=== PATIENT | male | born 1955 | race Caucasian/White ===

== ENCOUNTER → 2017-09-17 21:43 | Emergency (ER) | payer MEDICARE, MEDICAID ==
[2017-09-17] MEDS: SOD CHLORIDE 0.9% 1,000 ML IV (17:19)
[2017-09-17] MEDS: ONDANSETRON 4 MG INJ IV (17:19)
[2017-09-17 17:31] LABS: ADD MAN DIFF? NO
[2017-09-17 17:35] LABS: BASOPHIL # 0.1 10^3/ul (0.0-0.1); BASOPHILS % 1.1 % (0.0-2.0); EOSINOPHILS # 0.1 10^3/ul (0.0-0.5); EOSINOPHILS % 0.7 % (0.0-7.0); HEMATOCRIT 45.6 % (42.0-52.0); HEMOGLOBIN 15.1 g/dl (14.0-18.0); LYMPHOCYTES # 2.8 10^3/ul (0.8-2.9); LYMPHOCYTES % 31.9 % (15.0-51.0); MEAN CORPUSCULAR HEMOGLOBIN 27.3 pg (29.0-33.0); MEAN CORPUSCULAR HGB CONC 33.1 g/dl (32.0-37.0); MEAN CORPUSCULAR VOLUME 82.5 fl (82.0-101.0); MEAN PLATELET VOLUME 9.8 fl (7.4-10.4); MONOCYTE # 0.6 10^3/ul (0.3-0.9); MONOCYTES % 7.3 % (0.0-11.0); NEUTROPHILS % 56.6 % (39.0-77.0); PLATELET COUNT 263 10^3/UL (140-415); RED BLOOD COUNT 5.53 10^6/ul (4.70-6.10); RED CELL DISTRIBUTION WIDTH 15.1 % (11.5-14.5)
[2017-09-17 17:35] LABS: WHITE BLOOD COUNT 8.8 10^3/ul (4.8-10.8)
[2017-09-17 17:55] LABS: ALANINE AMINOTRANSFERASE 18 IU/L (13-69); ALBUMIN/GLOBULIN RATIO 1.29; ALKALINE PHOSPHATASE 184 IU/L (42-121); ANION GAP 16 (8-16); ASPARTATE AMINO TRANSFERASE 24 IU/L (15-46); BILIRUBIN,INDIRECT 0.5 mg/dl (0-1.1); BILIRUBIN,TOTAL 0.5 mg/dl (0.2-1.3); BLOOD UREA NITROGEN 19 mg/dl (7-20); CALCIUM 9.2 mg/dl (8.4-10.2); CARBON DIOXIDE 22 mmol/L (21-31); CHLORIDE 97 mmol/L (97-110); CREATININE 0.91 mg/dl (0.61-1.24); LIPASE 160 U/L (23-300); POTASSIUM 4.9 mmol/L (3.5-5.1); SODIUM 130 mmol/L (135-144); TOTAL PROTEIN 7.1 g/dl (6.1-8.1)
[2017-09-17 18:08] LABS: GLUCOSE 489 mg/dl (70-220)
[2017-09-17 18:19] LABS: ADD UMIC YES; UR ASCORBIC ACID NEGATIVE (NEGATIVE); UR BILIRUBIN (Dip) NEGATIVE (NEGATIVE); UR BLOOD (Dip) NEGATIVE (NEGATIVE); UR CLARITY CLEAR (CLEAR); UR COLOR STRAW (YELLOW); UR GLUCOSE (Dip) 3+ mg/dL (NEGATIVE); UR KETONES (Dip) NEGATIVE (NEGATIVE); UR LEUKOCYTE ESTERASE (Dip) NEGATIVE Leu/ul (NEGATIVE); UR NITRITE (Dip) NEGATIVE (NEGATIVE); UR RBC 0 /HPF (0-5); UR TOTAL PROTEIN (Dip) 1+ mg/dl (NEGATIVE); UR UROBILINOGEN (Dip) NEGATIVE (NEGATIVE); UR WBC 0 /HPF (0-5)
[2017-09-17] MEDS: INSULIN LISPRO 100 UNIT/ML VIAL SC (19:28)
[2017-09-17] MEDS: LACTATED RINGER'S 1,000 ML IV (19:33)
[2017-09-17] MEDS: KETOROLAC 30 MG INJ IV (20:30)
[~2017-09-17 21:43] MED LIST: SOD CHLORIDE 0.9% 1,000 ML IV
== END | disposition home or self-care (01) ==
DX: S69.92XA Unspecified injury of left wrist, hand and finger(s), initial encounter (principal); R11.10 Vomiting, unspecified; R19.7 Diarrhea, unspecified; E11.65 Type 2 diabetes mellitus with hyperglycemia; I10 Essential (primary) hypertension; X58.XXXA Exposure to other specified factors, initial encounter; Y92.9 Unspecified place or not applicable; Z79.84 Long term (current) use of oral hypoglycemic drugs
CPT/HCPCS: 29125; 73030; 73060; 73080-LT; 73110-LT; 73130-LT; 80053; 81001; 82962; 83690; 85025; 96372; 96374; 96375; 99284-25

== ENCOUNTER 2017-09-22 19:51 | Inpatient (IN) | payer MEDICARE, MEDICAID ==
[2017-09-23 00:54] LABS: ADD MAN DIFF? NO
[2017-09-23 00:55] LABS: WHITE BLOOD COUNT 7.7 10^3/ul (4.8-10.8)
[2017-09-23 00:55] LABS: BASOPHILS % 0.5 % (0.0-2.0); HEMATOCRIT 49.3 % (42.0-52.0); HEMOGLOBIN 16.2 g/dl (14.0-18.0); LYMPHOCYTES # 0.9 10^3/ul (0.8-2.9); LYMPHOCYTES % 11.1 % (15.0-51.0); MEAN CORPUSCULAR HEMOGLOBIN 27.1 pg (29.0-33.0); MEAN CORPUSCULAR HGB CONC 32.9 g/dl (32.0-37.0); MEAN CORPUSCULAR VOLUME 82.4 fl (82.0-101.0); MEAN PLATELET VOLUME 9.2 fl (7.4-10.4); MONOCYTE # 0.5 10^3/ul (0.3-0.9); MONOCYTES % 6.1 % (0.0-11.0); NEUTROPHIL # 6.3 10^3/ul (1.6-7.5); NEUTROPHILS % 81.5 % (39.0-77.0); PLATELET COUNT 217 10^3/UL (140-415); RED BLOOD COUNT 5.98 10^6/ul (4.70-6.10); RED CELL DISTRIBUTION WIDTH 15.3 % (11.5-14.5)
[2017-09-23] MEDS ORDERED: HYDROmorphONE 2 MG/ML SYG IV (01:14)
[2017-09-23 01:15] LABS: ALANINE AMINOTRANSFERASE 18 IU/L (13-69); ALBUMIN 4.3 g/dl (3.3-4.9); ALBUMIN/GLOBULIN RATIO 1.59; ALKALINE PHOSPHATASE 126 IU/L (42-121); ANION GAP 25 (8-16); ASPARTATE AMINO TRANSFERASE 44 IU/L (15-46); BILIRUBIN,INDIRECT 0.7 mg/dl (0-1.1); BILIRUBIN,TOTAL 0.7 mg/dl (0.2-1.3); BLOOD UREA NITROGEN 22 mg/dl (7-20); CALCIUM 9.5 mg/dl (8.4-10.2); CARBON DIOXIDE 15 mmol/L (21-31); CHLORIDE 93 mmol/L (97-110); CREATININE 1.09 mg/dl (0.61-1.24); POTASSIUM 4.9 mmol/L (3.5-5.1); SODIUM 128 mmol/L (135-144)
[2017-09-23] MEDS: HYDROmorphONE 1 MG/ML SYG IV ×4 (01:23→16:53)
[2017-09-23 01:27] LABS: B-TYPE NATRIURETIC PEPTIDE 366 PG/ML (0-125); TROPONIN-I < 0.010 ng/ml (0.000-0.120)
[2017-09-23 01:31] LABS: GLUCOSE 827 mg/dl (70-220)
[2017-09-23] MEDS ORDERED: SODIUM CHLORIDE 23.4% 77 MEQ, POTASSIUM CHLORIDE 40 MEQ in DEXTROSE 10% 1,000 ML IV (02:04)
[2017-09-23] MEDS ORDERED: POTASSIUM CHLORIDE 40 MEQ in SOD CHLORIDE 0.9% 1,000 ML IV (02:04)
[2017-09-23] MEDS ORDERED: SODIUM CHLORIDE 23.4% 77 MEQ in DEXTROSE 10% 1,000 ML IV (02:04)
[2017-09-23] MEDS: SOD CHLORIDE 0.9% 1,000 ML IV (02:21)
[2017-09-23] MEDS ORDERED: DEXTROSE 50% 50 ML SYRINGE IV ×4 (02:30→13:30)
[2017-09-23] MEDS: LACTATED RINGER'S 880 ML IV (03:16)
[2017-09-23 04:01] LABS: MODE ROOM AIR; MetHgb Venous 0.4 %; Sample Type Blood venous; Site VENOUS LINE; Venous COHb 0.6 %; Venous Fraction OxyHgb 86.8 %; Venous Oxygen Sat 87.7 mmHG (55.0-75.0); Venous Total Hemglobin 15.9 g/dl
[2017-09-23] MEDS: INSULIN REGULAR, HUMAN 100 UNIT in SOD CHLORIDE 0.9% 100 ML IV (04:04)
[2017-09-23] MEDS: POTASSIUM CHLORIDE 30 MEQ in SOD CHLORIDE 0.9% 1,000 ML IV (04:05)
[2017-09-23 05:08] LABS: ANION GAP 19 (8-16); BLOOD UREA NITROGEN 19 mg/dl (7-20); CALCIUM 8.7 mg/dl (8.4-10.2); CARBON DIOXIDE 18 mmol/L (21-31); CHLORIDE 100 mmol/L (97-110); MAGNESIUM 1.9 mg/dl (1.7-2.5); PHOSPHORUS 2.9 mg/dl (2.5-4.9); POTASSIUM 5.1 mmol/L (3.5-5.1); SODIUM 132 mmol/L (135-144)
[2017-09-23] MEDS: SODIUM CHLORIDE 23.4% 77 MEQ, POTASSIUM CHLORIDE 30 MEQ in DEXTROSE 10% 1,000 ML IV ×3 (05:11→17:07)
[2017-09-23 05:20] LABS: GLUCOSE 551 mg/dl (70-220)
[2017-09-23 06:06] LABS: MODE ROOM AIR; MetHgb Venous 0.3 %; Sample Type Blood venous; Site VENOUS LINE; Venous COHb 0.9 %; Venous Fraction OxyHgb 87.6 %; Venous Oxygen Sat 88.7 mmHG (55.0-75.0); Venous Total Hemglobin 15.7 g/dl
[2017-09-23 06:32] LABS: ADD UMIC YES; UR ASCORBIC ACID NEGATIVE (NEGATIVE); UR BILIRUBIN (Dip) NEGATIVE (NEGATIVE); UR BLOOD (Dip) 1+ mg/dL (NEGATIVE); UR CLARITY CLEAR (CLEAR); UR COLOR COLORLESS (YELLOW); UR GLUCOSE (Dip) 3+ mg/dL (NEGATIVE); UR KETONES (Dip) NEGATIVE (NEGATIVE); UR LEUKOCYTE ESTERASE (Dip) NEGATIVE Leu/ul (NEGATIVE); UR NITRITE (Dip) NEGATIVE (NEGATIVE); UR RBC 0 /HPF (0-5); UR SPECIFIC GRAVITY (Dip) 1.023 (1.003-1.030); UR TOTAL PROTEIN (Dip) NEGATIVE (NEGATIVE); UR UROBILINOGEN (Dip) NEGATIVE (NEGATIVE); UR WBC 0 /HPF (0-5)
[2017-09-23 06:33] LABS: ANION GAP 17 (8-16); BLOOD UREA NITROGEN 18 mg/dl (7-20); CALCIUM 8.9 mg/dl (8.4-10.2); CARBON DIOXIDE 21 mmol/L (21-31); CHLORIDE 106 mmol/L (97-110); CREATININE 0.88 mg/dl (0.61-1.24); GLUCOSE 200 mg/dl (70-220); PHOSPHORUS 1.7 mg/dl (2.5-4.9); SODIUM 140 mmol/L (135-144)
[2017-09-23 07:02] LABS: CREATINE KINASE 99 IU/L (23-200)
[2017-09-23 07:13] LABS: CK INDEX 3.7; CK-MB 3.67 ng/ml (0.0-2.4); TROPONIN-I 0.021 ng/ml (0.000-0.120)
[2017-09-23 10:11] LABS: AADO2 Venous 40.4 mmHg; MODE ROOM AIR; MetHgb Venous 0.4 %; Sample Type Blood venous; Site VENOUS LINE; Venous COHb 0.5 %; Venous Fraction OxyHgb 91.8 %; Venous Oxygen Sat 92.6 mmHG (55.0-75.0); Venous Total Hemglobin 15.4 g/dl
[2017-09-23] MEDS: SULFACETAMIDE 10% 15 ML OPH BOTH EYES ×4 (11:01→22:15)
[2017-09-23 11:13] LABS: ANION GAP 6 (8-16); BLOOD UREA NITROGEN 17 mg/dl (7-20); CALCIUM 8.7 mg/dl (8.4-10.2); CARBON DIOXIDE 26 mmol/L (21-31); CHLORIDE 108 mmol/L (97-110); CREATININE 0.69 mg/dl (0.61-1.24); GLUCOSE 88 mg/dl (70-220); PHOSPHORUS 1.2 mg/dl (2.5-4.9); POTASSIUM 3.4 mmol/L (3.5-5.1); SODIUM 137 mmol/L (135-144)
[2017-09-23] MEDS: INSULIN GLARGINE [LANTus] (100 UNITS/ML) SYG SC (13:24)
[2017-09-23] MEDS ORDERED: GLUCOSE GEL 15 GRAM TUBE BUCCAL (13:30)
[2017-09-23] MEDS ORDERED: GLUCOSE GEL 15 GRAM TUBE PO ×2 (13:30)
[2017-09-23] MEDS ORDERED: GLUCAGON 1 MG INJ IM (13:30)
[2017-09-23 13:36] LABS: ADD UMIC YES; UR ASCORBIC ACID NEGATIVE (NEGATIVE); UR BILIRUBIN (Dip) NEGATIVE (NEGATIVE); UR BLOOD (Dip) 1+ mg/dL (NEGATIVE); UR CLARITY CLEAR (CLEAR); UR COLOR COLORLESS (YELLOW); UR GLUCOSE (Dip) 3+ mg/dL (NEGATIVE); UR KETONES (Dip) NEGATIVE (NEGATIVE); UR LEUKOCYTE ESTERASE (Dip) NEGATIVE Leu/ul (NEGATIVE); UR NITRITE (Dip) NEGATIVE (NEGATIVE); UR RBC 0 /HPF (0-5); UR SPECIFIC GRAVITY (Dip) 1.023 (1.003-1.030); UR TOTAL PROTEIN (Dip) NEGATIVE (NEGATIVE); UR UROBILINOGEN (Dip) NEGATIVE (NEGATIVE); UR WBC 0 /HPF (0-5)
[2017-09-23 14:01] LABS: AMPHETAMINE/METHAMPHETAMINE Negative (NEGATIVE); BARBITURATES Negative (NEGATIVE); BENZODIAZEPINES Negative (NEGATIVE); CANNABINOIDS Negative (NEGATIVE); COCAINE Negative (NEGATIVE); OPIATES Negative (NEGATIVE)
[2017-09-23 14:05] LABS: MODE ROOM AIR; MetHgb Venous 0.3 %; Sample Type Blood venous; Site VENOUS LINE; Venous COHb 0.7 %; Venous Fraction OxyHgb 72.4 %; Venous Oxygen Sat 73.1 mmHG (55.0-75.0); Venous Total Hemglobin 15.7 g/dl
[2017-09-23 14:20] LABS: CREATINE KINASE 109 IU/L (23-200)
[2017-09-23 14:33] LABS: CK INDEX 3.3; CK-MB 3.61 ng/ml (0.0-2.4); TROPONIN-I < 0.010 ng/ml (0.000-0.120)
[2017-09-23 18:42] LABS: ANION GAP 8 (8-16); BLOOD UREA NITROGEN 16 mg/dl (7-20); CALCIUM 8.3 mg/dl (8.4-10.2); CARBON DIOXIDE 23 mmol/L (21-31); CHLORIDE 106 mmol/L (97-110); GLUCOSE 192 mg/dl (70-220); MAGNESIUM 1.8 mg/dl (1.7-2.5); PHOSPHORUS 1.5 mg/dl (2.5-4.9); SODIUM 133 mmol/L (135-144)
[2017-09-23] MEDS: INSULIN ASPART [NOVOLOG] 3 ML PEN SC ×2 (20:22→22:16)
[2017-09-23] MEDS ORDERED: ACETAMINOPHEN 325 MG TAB PO (20:30)
[2017-09-23] MEDS ORDERED: ONDANSETRON 4 MG INJ IV (20:30)
[2017-09-23] MEDS: HYDROmorphONE 0.5 MG/0.5 ML SYG IV (20:33)
[2017-09-23] MEDS ORDERED: GLIMEPIRIDE 2 MG TAB PO (21:00)
[2017-09-23] MEDS: NEOMYC/POLYMYX/BACIT 30 GM OINT TOP (22:15)
[2017-09-23] MEDS: ATORVASTATIN 10 MG TAB PO (22:16)
[2017-09-24] MEDS: LORAZEPAM 2 MG INJ IV (00:17)
[2017-09-24] MEDS: ACCU-CHEK XX (02:00)
[2017-09-24] MEDS: HYDROmorphONE 0.5 MG/0.5 ML SYG IV (02:04)
[2017-09-24] MEDS: HYDROmorphONE 1 MG/ML SYG IV ×4 (04:55→18:29)
[2017-09-24 05:43] LABS: ADD MAN DIFF? NO; BASOPHILS % 0.8 % (0.0-2.0); EOSINOPHILS # 0.1 10^3/ul (0.0-0.5); EOSINOPHILS % 1.6 % (0.0-7.0); HEMOGLOBIN 13.6 g/dl (14.0-18.0); LYMPHOCYTES # 2.1 10^3/ul (0.8-2.9); LYMPHOCYTES % 42.2 % (15.0-51.0); MEAN CORPUSCULAR HEMOGLOBIN 27.7 pg (29.0-33.0); MEAN CORPUSCULAR HGB CONC 33.2 g/dl (32.0-37.0); MEAN CORPUSCULAR VOLUME 83.5 fl (82.0-101.0); MEAN PLATELET VOLUME 8.9 fl (7.4-10.4); MONOCYTE # 0.3 10^3/ul (0.3-0.9); MONOCYTES % 6.6 % (0.0-11.0); NEUTROPHIL # 2.4 10^3/ul (1.6-7.5); NEUTROPHILS % 47.6 % (39.0-77.0); PLATELET COUNT 136 10^3/UL (140-415); RED BLOOD COUNT 4.91 10^6/ul (4.70-6.10); RED CELL DISTRIBUTION WIDTH 15.6 % (11.5-14.5)
[2017-09-24] MEDS: LEVOTHYROXINE 25 MCG TAB PO (06:00)
[2017-09-24 06:11] LABS: ALANINE AMINOTRANSFERASE 27 IU/L (13-69); ALKALINE PHOSPHATASE 100 IU/L (42-121); ANION GAP 8 (8-16); ASPARTATE AMINO TRANSFERASE 54 IU/L (15-46); BILIRUBIN,INDIRECT 0.4 mg/dl (0-1.1); BILIRUBIN,TOTAL 0.4 mg/dl (0.2-1.3); BLOOD UREA NITROGEN 15 mg/dl (7-20); CALCIUM 8.7 mg/dl (8.4-10.2); CARBON DIOXIDE 26 mmol/L (21-31); CHLORIDE 106 mmol/L (97-110); CHOL/HDL RATIO 2.1 RATIO; CHOLESTEROL 115 mg/dl (100-200); CREATININE 0.89 mg/dl (0.61-1.24); GLUCOSE 315 mg/dl (70-220); HDL CHOLESTEROL 54 mg/dl (30-78); LDL CHOLESTEROL,CALCULATED 7 mg/dl; MAGNESIUM 1.8 mg/dl (1.7-2.5); PHOSPHORUS 1.6 mg/dl (2.5-4.9); POTASSIUM 3.7 mmol/L (3.5-5.1); SODIUM 136 mmol/L (135-144); TOTAL PROTEIN 5.5 g/dl (6.1-8.1); TRIGLYCERIDES 271 mg/dl (0-149)
[2017-09-24 06:13] LABS: INR 0.92; PROTIME 12.4 Sec (11.9-14.9)
[2017-09-24 06:14] LABS: PARTIAL THROMBOPLASTIN TIME 25.5 Sec (25.0-35.0)
[2017-09-24 06:20] LABS: TROPONIN-I 0.013 ng/ml (0.000-0.120)
[2017-09-24 06:24] LABS: FREE THYROXINE INDEX (Calc) 2.89 ug/ml (0.65-3.89); T3 UPTAKE 45.9 % (23.5-40.5); T4 (THYROXINE) 6.3 ug/dl (5.5-11.0)
[2017-09-24 07:14] LABS: HEMOGLOBIN A1C 11.9 % (0-5.9)
[2017-09-24] MEDS: INSULIN ASPART [NOVOLOG] 3 ML PEN SC ×7 (08:16→20:50)
[2017-09-24] MEDS: SULFACETAMIDE 10% 15 ML OPH BOTH EYES ×4 (09:35→20:47)
[2017-09-24] MEDS: LITHIUM CARBONATE (SR) 300 MG TAB PO (09:35)
[2017-09-24] MEDS: NEOMYC/POLYMYX/BACIT 30 GM OINT TOP ×2 (09:36→13:09)
[2017-09-24] MEDS: LISINOPRIL 10 MG TAB PO (09:36)
[2017-09-24] MEDS: clonAZEPAM 0.5 MG TAB PO ×2 (13:09→21:14)
[2017-09-24] MEDS: ATORVASTATIN 10 MG TAB PO (20:47)
[2017-09-24] MEDS: metFORMIN 500 MG TAB PO (21:13)
[2017-09-24] MEDS: HYDROmorphONE 2 MG/ML SYG IV (21:16)
[2017-09-24] MEDS: INSULIN GLARGINE [LANTus] (100 UNITS/ML) SYG SC (22:06)
[2017-09-24 23:55] LABS: LITHIUM < 0.4 mmol/L (0.6-1.3)
[2017-09-25] MEDS: NEOMYC/POLYMYX/BACIT 30 GM OINT TOP ×4 (00:41→20:29)
[2017-09-25] MEDS: LITHIUM CARBONATE (SR) 300 MG TAB PO ×3 (00:45→20:29)
[2017-09-25] MEDS: HYDROmorphONE 2 MG/ML SYG IV ×6 (00:50→21:54)
[2017-09-25] MEDS: ACCU-CHEK XX (02:26)
[2017-09-25] MEDS ORDERED: CEFAZOLIN 1 GM/50 ML (PMX) 50 ML IVPB (04:53)
[2017-09-25] MEDS: CEFAZOLIN 1 GM/50 ML (PMX) 50 ML IVPB ×3 (05:51→17:02)
[2017-09-25 06:39] LABS: ADD MAN DIFF? NO
[2017-09-25 06:42] LABS: BASOPHILS % 0.7 % (0.0-2.0); EOSINOPHILS # 0.3 10^3/ul (0.0-0.5); EOSINOPHILS % 4.1 % (0.0-7.0); HEMATOCRIT 38.7 % (42.0-52.0); HEMOGLOBIN 12.6 g/dl (14.0-18.0); LYMPHOCYTES # 3.1 10^3/ul (0.8-2.9); LYMPHOCYTES % 51.4 % (15.0-51.0); MEAN CORPUSCULAR HEMOGLOBIN 27.5 pg (29.0-33.0); MEAN CORPUSCULAR HGB CONC 32.6 g/dl (32.0-37.0); MEAN CORPUSCULAR VOLUME 84.5 fl (82.0-101.0); MONOCYTE # 0.4 10^3/ul (0.3-0.9); MONOCYTES % 6.8 % (0.0-11.0); NEUTROPHIL # 2.1 10^3/ul (1.6-7.5); NEUTROPHILS % 34.4 % (39.0-77.0); PLATELET COUNT 149 10^3/UL (140-415); RED BLOOD COUNT 4.58 10^6/ul (4.70-6.10); RED CELL DISTRIBUTION WIDTH 15.9 % (11.5-14.5)
[2017-09-25 06:42] LABS: WHITE BLOOD COUNT 6.1 10^3/ul (4.8-10.8)
[2017-09-25 07:10] LABS: ALANINE AMINOTRANSFERASE 33 IU/L (13-69); ALBUMIN 2.9 g/dl (3.3-4.9); ALBUMIN/GLOBULIN RATIO 1.11; ALKALINE PHOSPHATASE 85 IU/L (42-121); ANION GAP 9 (8-16); ASPARTATE AMINO TRANSFERASE 46 IU/L (15-46); BILIRUBIN,INDIRECT 0.3 mg/dl (0-1.1); BILIRUBIN,TOTAL 0.3 mg/dl (0.2-1.3); BLOOD UREA NITROGEN 18 mg/dl (7-20); CALCIUM 9.1 mg/dl (8.4-10.2); CARBON DIOXIDE 29 mmol/L (21-31); CHLORIDE 102 mmol/L (97-110); CREATININE 0.78 mg/dl (0.61-1.24); GLUCOSE 217 mg/dl (70-220); POTASSIUM 3.7 mmol/L (3.5-5.1); SODIUM 136 mmol/L (135-144); TOTAL PROTEIN 5.5 g/dl (6.1-8.1)
[2017-09-25] MEDS: LORAZEPAM 2 MG INJ IV ×2 (08:16→19:30)
[2017-09-25] MEDS: INSULIN ASPART [NOVOLOG] 3 ML PEN SC ×7 (08:47→21:00)
[2017-09-25] MEDS: LISINOPRIL 10 MG TAB PO (08:48)
[2017-09-25] MEDS: metFORMIN 500 MG TAB PO ×2 (08:48→17:02)
[2017-09-25] MEDS: LINAGLIPTIN 5 MG TABLET PO (08:48)
[2017-09-25] MEDS: SULFACETAMIDE 10% 15 ML OPH BOTH EYES ×4 (08:49→20:29)
[2017-09-25] MEDS: clonAZEPAM 0.5 MG TAB PO (10:16)
[2017-09-25] MEDS: LEVOTHYROXINE 25 MCG TAB PO (10:17)
[2017-09-25 14:58] LABS: HEMOGLOBIN A1C 12.1 % (0-5.9)
[2017-09-25] MEDS: ATORVASTATIN 10 MG TAB PO (20:29)
[2017-09-25] MEDS: INSULIN GLARGINE [LANTus] (100 UNITS/ML) SYG SC (21:22)
[2017-09-26] MEDS: clonAZEPAM 0.5 MG TAB PO (00:11)
[2017-09-26] MEDS: HYDROmorphONE 2 MG/ML SYG IV ×5 (01:54→18:07)
[2017-09-26] MEDS: ACCU-CHEK XX ×2 (02:00→23:05)
[2017-09-26] MEDS: CEFAZOLIN 1 GM/50 ML (PMX) 50 ML IVPB ×4 (05:43→17:30)
[2017-09-26] MEDS: LORAZEPAM 2 MG INJ IV ×2 (08:00→20:22)
[2017-09-26] MEDS: metFORMIN 500 MG TAB PO ×2 (08:04→17:30)
[2017-09-26] MEDS: NEOMYC/POLYMYX/BACIT 30 GM OINT TOP ×3 (08:04→20:21)
[2017-09-26] MEDS: SULFACETAMIDE 10% 15 ML OPH BOTH EYES ×4 (08:05→20:21)
[2017-09-26] MEDS: LINAGLIPTIN 5 MG TABLET PO (08:05)
[2017-09-26] MEDS: LITHIUM CARBONATE (SR) 300 MG TAB PO ×2 (08:05→20:22)
[2017-09-26] MEDS: LISINOPRIL 10 MG TAB PO (08:06)
[2017-09-26] MEDS: INSULIN ASPART [NOVOLOG] 3 ML PEN SC ×7 (08:07→20:21)
[2017-09-26] MEDS: LEVOTHYROXINE 25 MCG TAB PO (10:04)
[2017-09-26] MEDS: ATORVASTATIN 10 MG TAB PO (20:21)
[2017-09-26] MEDS: INSULIN GLARGINE [LANTus] (100 UNITS/ML) SYG SC (20:46)
[2017-09-26] MEDS: HYDROmorphONE 1 MG/ML SYG IV (22:05)
[2017-09-27] MEDS: CEFAZOLIN 1 GM/50 ML (PMX) 50 ML IVPB ×5 (00:46→23:50)
[2017-09-27] MEDS: HYDROmorphONE 0.5 MG/0.5 ML SYG IV ×6 (02:11→23:50)
[2017-09-27] MEDS: INSULIN ASPART [NOVOLOG] 3 ML PEN SC ×7 (08:00→20:01)
[2017-09-27] MEDS: NEOMYC/POLYMYX/BACIT 30 GM OINT TOP ×3 (09:03→20:00)
[2017-09-27] MEDS: LINAGLIPTIN 5 MG TABLET PO (09:03)
[2017-09-27] MEDS: LITHIUM CARBONATE (SR) 300 MG TAB PO ×2 (09:03→20:40)
[2017-09-27] MEDS: SULFACETAMIDE 10% 15 ML OPH BOTH EYES ×4 (09:03→20:00)
[2017-09-27] MEDS: metFORMIN 500 MG TAB PO ×2 (09:03→17:50)
[2017-09-27] MEDS: LISINOPRIL 10 MG TAB PO (09:04)
[2017-09-27] MEDS: LORAZEPAM 2 MG INJ IV (09:04)
[2017-09-27] MEDS: LEVOTHYROXINE 25 MCG TAB PO (10:56)
[2017-09-27 16:41] LABS: ADD MAN DIFF? NO
[2017-09-27 16:43] LABS: BASOPHIL # 0.1 10^3/ul (0.0-0.1); BASOPHILS % 0.9 % (0.0-2.0); EOSINOPHILS # 0.3 10^3/ul (0.0-0.5); EOSINOPHILS % 3.5 % (0.0-7.0); HEMATOCRIT 42.3 % (42.0-52.0); HEMOGLOBIN 13.4 g/dl (14.0-18.0); IMMATURE GRANS #M 0.16 10^3/ul; LYMPHOCYTES # 2.1 10^3/ul (0.8-2.9); LYMPHOCYTES % 25.8 % (15.0-51.0); MEAN CORPUSCULAR HEMOGLOBIN 27.9 pg (29.0-33.0); MEAN CORPUSCULAR HGB CONC 31.7 g/dl (32.0-37.0); MEAN CORPUSCULAR VOLUME 87.9 fl (82.0-101.0); MEAN PLATELET VOLUME 11.6 fl (7.4-10.4); MONOCYTE # 0.9 10^3/ul (0.3-0.9); MONOCYTES % 11.3 % (0.0-11.0); NEUTROPHIL # 4.5 10^3/ul (1.6-7.5); NEUTROPHILS % 56.5 % (39.0-77.0); POSITIVE DIFF @See below; RED BLOOD COUNT 4.81 10^6/ul (4.70-6.10); RED CELL DISTRIBUTION WIDTH 15.9 % (11.5-14.5)
[2017-09-27 17:00] LABS: ANION GAP 12 (8-16); BLOOD UREA NITROGEN 17 mg/dl (7-20); CALCIUM 9.4 mg/dl (8.4-10.2); CARBON DIOXIDE 24 mmol/L (21-31); CHLORIDE 104 mmol/L (97-110); CREATININE 0.75 mg/dl (0.61-1.24); GLUCOSE 83 mg/dl (70-220); MAGNESIUM 1.8 mg/dl (1.7-2.5); SODIUM 135 mmol/L (135-144)
[2017-09-27 17:41] LABS: PLATELET COUNT 117 10^3/UL (140-415)
[2017-09-27] MEDS: ATORVASTATIN 10 MG TAB PO (20:01)
[2017-09-27] MEDS: INSULIN GLARGINE [LANTus] (100 UNITS/ML) SYG SC (20:02)
[2017-09-28] MEDS: ACCU-CHEK XX (01:46)
[2017-09-28] MEDS: LORAZEPAM 2 MG INJ IV ×2 (02:00→09:24)
[2017-09-28] MEDS: HYDROmorphONE 0.5 MG/0.5 ML SYG IV ×3 (04:02→12:48)
[2017-09-28] MEDS: CEFAZOLIN 1 GM/50 ML (PMX) 50 ML IVPB ×4 (05:22→23:58)
[2017-09-28] MEDS: LINAGLIPTIN 5 MG TABLET PO (08:11)
[2017-09-28] MEDS: LISINOPRIL 10 MG TAB PO (08:12)
[2017-09-28] MEDS: LITHIUM CARBONATE (SR) 300 MG TAB PO ×2 (08:12→20:49)
[2017-09-28] MEDS: INSULIN ASPART [NOVOLOG] 3 ML PEN SC ×7 (08:13→20:50)
[2017-09-28] MEDS: SULFACETAMIDE 10% 15 ML OPH BOTH EYES ×4 (08:14→20:50)
[2017-09-28] MEDS: metFORMIN 500 MG TAB PO ×2 (08:14→17:31)
[2017-09-28] MEDS: NEOMYC/POLYMYX/BACIT 30 GM OINT TOP ×3 (08:14→20:49)
[2017-09-28 09:37] LABS: FREE TESTOSTERONE 8.2 pg/mL (35.0-155.0); TESTOSTERONE, TOTAL 31 ng/dL (250-1100)
[2017-09-28] MEDS: LEVOTHYROXINE 25 MCG TAB PO (11:15)
[2017-09-28] MEDS: BELLADONNA/PHENOBARBITAL TAB PO (11:15)
[2017-09-28] MEDS: HYDROmorphONE 2 MG TAB PO ×2 (17:32→21:48)
[2017-09-28] MEDS ORDERED: DIPHENOXYLATE/ATROPINE TAB PO (20:00)
[2017-09-28] MEDS: ATORVASTATIN 10 MG TAB PO (20:49)
[2017-09-28] MEDS: INSULIN GLARGINE [LANTus] (100 UNITS/ML) SYG SC (20:51)
[2017-09-29] MEDS: HYDROmorphONE 2 MG TAB PO ×2 (01:59→06:02)
[2017-09-29] MEDS: ACCU-CHEK XX (02:00)
[2017-09-29] MEDS: LORAZEPAM 2 MG INJ IV ×2 (04:08→23:56)
[2017-09-29] MEDS: CEFAZOLIN 1 GM/50 ML (PMX) 50 ML IVPB ×4 (05:16→23:57)
[2017-09-29] MEDS: INSULIN ASPART [NOVOLOG] 3 ML PEN SC ×6 (08:02→21:00)
[2017-09-29] MEDS: LITHIUM CARBONATE (SR) 300 MG TAB PO ×2 (08:08→21:43)
[2017-09-29] MEDS: metFORMIN 500 MG TAB PO (08:08)
[2017-09-29] MEDS: LINAGLIPTIN 5 MG TABLET PO (08:08)
[2017-09-29] MEDS: NEOMYC/POLYMYX/BACIT 30 GM OINT TOP ×3 (08:09→21:39)
[2017-09-29] MEDS: SULFACETAMIDE 10% 15 ML OPH BOTH EYES ×4 (08:09→21:41)
[2017-09-29] MEDS: LISINOPRIL 10 MG TAB PO (08:09)
[2017-09-29] MEDS: HYDROmorphONE 2 MG/ML SYG IV ×4 (10:09→22:01)
[2017-09-29] MEDS: BELLADONNA/PHENOBARBITAL TAB PO (11:44)
[2017-09-29] MEDS: LEVOTHYROXINE 25 MCG TAB PO (11:44)
[2017-09-29] MEDS: PIOGLITAZONE 30 MG TAB PO (17:03)
[2017-09-29] MEDS: glipiZIDE 5 MG TAB PO (17:04)
[2017-09-29] MEDS: metFORMIN (XR) 500 MG TAB PO (21:42)
[2017-09-29] MEDS: ATORVASTATIN 10 MG TAB PO (21:46)
[2017-09-30] MEDS: ACCU-CHEK XX (01:53)
[2017-09-30] MEDS: HYDROmorphONE 2 MG/ML SYG IV ×3 (01:57→11:17)
[2017-09-30] MEDS: CEFAZOLIN 1 GM/50 ML (PMX) 50 ML IVPB ×2 (05:40→12:10)
[2017-09-30] MEDS: SOD CHLORIDE 0.9% 500 ML IV (06:12)
[2017-09-30] MEDS: EMPAGLIFLOZIN 10 MG TABLET PO (08:23)
[2017-09-30] MEDS: INSULIN ASPART [NOVOLOG] 3 ML PEN SC ×2 (08:25→12:00)
[2017-09-30] MEDS: PIOGLITAZONE 30 MG TAB PO (08:26)
[2017-09-30] MEDS: SULFACETAMIDE 10% 15 ML OPH BOTH EYES ×2 (08:26→12:12)
[2017-09-30] MEDS: LITHIUM CARBONATE (SR) 300 MG TAB PO (08:26)
[2017-09-30] MEDS: metFORMIN (XR) 500 MG TAB PO (08:26)
[2017-09-30] MEDS: LINAGLIPTIN 5 MG TABLET PO (08:27)
[2017-09-30] MEDS: NEOMYC/POLYMYX/BACIT 30 GM OINT TOP ×2 (08:27→12:11)
[2017-09-30] MEDS: glipiZIDE 10 MG TAB PO (08:32)
[2017-09-30] MEDS: LISINOPRIL 10 MG TAB PO (08:35)
[2017-09-30] MEDS: LEVOTHYROXINE 25 MCG TAB PO (10:49)
[2017-09-30] MEDS: LORAZEPAM 2 MG INJ IV (12:32)
== END 2017-09-30 14:15 | disposition home or self-care (01) | DRG 638 ==
LOC: E/R 19:51 → PP2 09-23 17:25
PROVIDERS: Internal Medicine
DX: E11.10 Type 2 diabetes mellitus with ketoacidosis without coma (principal); F11.20 Opioid dependence, uncomplicated; E87.1 Hypo-osmolality and hyponatremia; E11.65 Type 2 diabetes mellitus with hyperglycemia; R04.0 Epistaxis; F31.9 Bipolar disorder, unspecified; E03.9 Hypothyroidism, unspecified; E29.1 Testicular hypofunction; I10 Essential (primary) hypertension; M50.10 Cervical disc disorder with radiculopathy, unspecified cervical region; Z86.73 Personal history of transient ischemic attack (TIA), and cerebral infarction without residual deficits; E87.8 Other disorders of electrolyte and fluid balance, not elsewhere classified; E66.9 Obesity, unspecified; Z68.31 Body mass index [BMI] 31.0-31.9, adult; H10.9 Unspecified conjunctivitis; I25.10 Atherosclerotic heart disease of native coronary artery without angina pectoris; F32.9 Major depressive disorder, single episode, unspecified; F41.9 Anxiety disorder, unspecified; R19.7 Diarrhea, unspecified; R10.9 Unspecified abdominal pain; R51 Headache; M79.601 Pain in right arm; M54.2 Cervicalgia; S00.03XA Contusion of scalp, initial encounter; R55 Syncope and collapse
CPT/HCPCS: 36415; 70450; 70486; 71045; 80048; 80053; 80061; 80178; 80307; 81001; 82550; 82553; 82803; 82962; 83036; 83735; 83880; 84100; 84403; 84436; 84443; 84479; 84484; 85025; 85610; 85651; 85730; 87070; 87081; 93005; 96361; 96374; 99285-25

== ENCOUNTER 2017-10-09 12:12 | Emergency (ER) | payer MEDICARE, MEDICAID ==
[2017-10-09] MEDS: HYDROCODONE/APAP (10/325) TAB PO (15:41)
[2017-10-09] MEDS: ONDANSETRON (ODT) 4 MG TAB ODT (15:41)
== END 2017-10-09 15:58 | disposition home or self-care (01) ==
LOC: FTE 12:12 → E/R 15:58
DX: R51 Headache (principal); E11.9 Type 2 diabetes mellitus without complications; I10 Essential (primary) hypertension; Z79.84 Long term (current) use of oral hypoglycemic drugs
CPT/HCPCS: 82962; 99283

== ENCOUNTER 2017-10-12 05:47 | Emergency (ER) | payer MEDICARE, MEDICAID ==
[2017-10-12] MEDS ORDERED: LORAZEPAM 1 MG TAB PO (07:00)
[2017-10-12] MEDS: SOD CHLORIDE 0.9% 1,000 ML IV (08:00)
[2017-10-12] MEDS: INSULIN LISPRO 100 UNIT/ML VIAL SC (08:01)
[2017-10-12 08:02] LABS: ADD MAN DIFF? NO
[2017-10-12 08:17] LABS: WHITE BLOOD COUNT 7.5 10^3/ul (4.8-10.8)
[2017-10-12 08:17] LABS: BASOPHIL # 0.1 10^3/ul (0.0-0.1); BASOPHILS % 1.1 % (0.0-2.0); EOSINOPHILS # 0.1 10^3/ul (0.0-0.5); EOSINOPHILS % 1.3 % (0.0-7.0); HEMATOCRIT 48.2 % (42.0-52.0); HEMOGLOBIN 15.8 g/dl (14.0-18.0); LYMPHOCYTES # 2.5 10^3/ul (0.8-2.9); LYMPHOCYTES % 33.9 % (15.0-51.0); MEAN CORPUSCULAR HEMOGLOBIN 27.1 pg (29.0-33.0); MEAN CORPUSCULAR HGB CONC 32.8 g/dl (32.0-37.0); MEAN CORPUSCULAR VOLUME 82.8 fl (82.0-101.0); MEAN PLATELET VOLUME 9.4 fl (7.4-10.4); MONOCYTE # 0.5 10^3/ul (0.3-0.9); MONOCYTES % 6.3 % (0.0-11.0); NEUTROPHIL # 4.1 10^3/ul (1.6-7.5); NEUTROPHILS % 55.4 % (39.0-77.0); PLATELET COUNT 300 10^3/UL (140-415); RED BLOOD COUNT 5.82 10^6/ul (4.70-6.10); RED CELL DISTRIBUTION WIDTH 16.3 % (11.5-14.5)
[2017-10-12 08:33] LABS: ALANINE AMINOTRANSFERASE 7 IU/L (13-69); ALBUMIN 4.5 g/dl (3.3-4.9); ALBUMIN/GLOBULIN RATIO 1.28; ALKALINE PHOSPHATASE 91 IU/L (42-121); ANION GAP 27 (8-16); ASPARTATE AMINO TRANSFERASE 41 IU/L (15-46); BILIRUBIN,INDIRECT 0.2 mg/dl (0-1.1); BILIRUBIN,TOTAL 0.2 mg/dl (0.2-1.3); BLOOD UREA NITROGEN 26 mg/dl (7-20); CARBON DIOXIDE 17 mmol/L (21-31); CHLORIDE 102 mmol/L (97-110); GLUCOSE 171 mg/dl (70-220); LIPASE 133 U/L (23-300); POTASSIUM 5.5 mmol/L (3.5-5.1); SODIUM 140 mmol/L (135-144)
[2017-10-12 10:01] LABS: ANISOCYTOSIS 1+ (0-0); BAND NEUTROPHILS #M 0.1 10^3/ul (0.0-0.6); BAND NEUTROPHILS % (M) 2 % (0-4); EOSINOPHILS % (M) 1 % (0-7); LYMPHOCYTES #M 1.6 10^3/ul (0.8-2.9); LYMPHOCYTES % (M) 22 % (15-51); MICROCYTOSIS 1+ (0-0); MONOCYTE #M 0.8 10^3/ul (0.3-0.9); MONOCYTES % (M) 11 % (0-11); MYELOCYTES #M 0.1 10^3/ul (0.0-0.0); MYELOCYTES % (M) 2 % (0-0); PLATELET ESTIMATE NORMAL; POIKILOCYTOSIS 2+ (0-0); REACTIVE LYMPHOCYTES #M 0.3 10^3/ul (0.0-0.0); REACTIVE LYMPHOCYTES% (M) 4 % (0-0); SEG NEUT #M 4.4 10^3/ul (1.6-7.5); SEGMENTED NEUTROPHILS (M) % 58 % (39-77)
[2017-10-12] MEDS: ALBUTEROL 0.083% (NEB) 2.5 MG/3 ML AMP HHN (10:24)
== END 2017-10-12 10:55 | disposition home or self-care (01) ==
LOC: E/R 05:47
DX: F31.9 Bipolar disorder, unspecified (principal); I10 Essential (primary) hypertension; R06.02 Shortness of breath; Z79.84 Long term (current) use of oral hypoglycemic drugs
CPT/HCPCS: 80053; 82962; 83690; 85025; 94664; 96360; 96372; 99284-25